=== PATIENT | female | born 1965 | race African-American/Black ===

== ENCOUNTER 2023-07-11 13:49 | Outpatient (AMB) | payer OTHER, SELFPAY ==
--- NOTE | 2023-07-11 14:11 | MHC.OFFVIS ---
Intake Vital Signs 07/11/23 14:12 Height 5 ft 4 in Weight 167 lb BMI 28.7 BP 118/68 Blood Pressure Location Rt brachial Position Sitting Pulse 74 Pulse Source Pulse Oximeter Pulse Oximetry (%) 97 Oxygen Delivery Method Room Air Intake Visit Reasons: Cough Aquatic Performer Required: No Market Development Director: Market Development Director offered & declined Accompanied by: Self / Same As Patient Allergies Latex Allergy (Severe, Uncoded 07/11/23 14:21) Hives Medication List - Last Reconciled 07/11/23 by Yissel Weldon LPN amlodipine 2.5 mg PO DAILY cetirizine 10 mg PO DAILY PRN fluticasone propionate 50 mcg/actuation 1 spray intranasal BID levothyroxine 100 mcg PO DAILY rosuvastatin 10 mg PO DAILY HPI Cough HPI Details Kerri is a pleasant 58 year old female, former smoker with 7 pack year history, quit 35 years ago with underlying HTN, environmental allergies and allergic rhinitis. She was referred for pulmonary evaluation for chronic dry cough. She reports cough started after COVID last year, and continues with intermittent wheezing and dyspnea with moderate exertion. She had a CXR recently which was unremarkable. She reports multiple family members with asthma, but denies any personal history of respiratory conditions. She notes weight gain of approximately 20 pounds over the last year. She reports multiple environmental allergies and post nasal drip, using zyrtec and flonase with good effect. She also is allergic to cats and has a cat. Of note, patient reports ongoing bilateral leg edema for the past few months which may be related to amlodipine. She has placed a call to her PCP to discuss. [facility] Social History (Updated 07/11/23 @ 14:27 by Yissel Weldon LPN) Patient Tobacco Use Status: Former Tobacco user Tobacco use type: Cigarette Cigarettes Per Day: 10 Years Smoked: 14 Smoked in Last 30 Days: No Review of Systems Const Denies chills, Denies excessive sweating, Denies fever(s), Denies headache(s) and Denies night sweats Eyes Denies dry eyes, Denies irritation and Denies itchy eyes ENT Reports Normal hearing present, Denies headache(s), Denies nasal discharge and Denies sore throat Card Denies chest pain, Denies chest pain at rest, Denies chest pain with activity, Denies claudication, Reports leg edema, Denies orthopnea and Denies paroxysmal nocturnal dyspnea Resp Denies chest congestion, Reports cough, Denies excessive phlegm production, Denies pain on inspiration, Denies pain with cough, Denies stridor and Reports wheezing Musc Denies myalgias Neuro Reports Normal hearing present and Denies headache(s) Endo Denies excessive sweating Henrry/Lymph Denies lymphadenopathy Aller/Immun Denies itchy eyes, Denies seasonal rhinorrhea and Reports wheezing Physical Exam Vital Signs: Last Vital Signs Pulse 74 07/11/23 14:12 BP 118/68 07/11/23 14:12 Pulse Ox 97 07/11/23 14:12 Oxygen Delivery Method Room Air 07/11/23 14:12 BMI result Body Mass Index 28.7 Const General: cooperative, healthy appearing, comfortable, no acute distress, well developed and alert Orientation/consciousness: patient oriented x3 Limitations: no limitations HEENT Head: Yes normal to inspection, Yes normocephalic and Yes atraumatic Ears: hearing grossly normal bilaterally and external ears normal Eyes General: appearance normal, both eyes and all related structures Eyelids: Yes eyelids normal Sclerae: sclerae normal EOM: EOMs intact bilaterally Neck Neck: Yes normal visual inspection and Yes no lymphadenopathy Lymphatic: no lymphadenopathy noted Chest Chest palpation & inspection: normal inspection of the chest Resp Effort & Inspection: normal respiratory effort, able to speak in complete sentences, no audible wheezes, no cough, no stridor, not tachypneic, no tripod positioning and no use of accessory muscles Auscultation: clear to auscultation bilaterally Cardio Jugular venous distension: no JVD Rate: regular rate Rhythm: regular rhythm Skin Other: warm, dry General skin exam: no rashes or lesions noted Neuro General: patient oriented x3 Cranial nerves: Yes Normal hearing present Cognition (Neuro): normal cognition Gait exam (Neuro): Normal gait present Extrem Other: 1-2+ pitting edema BLE General: Yes normal to inspection and Yes capillary refill normal Psych Appearance: grossly normal and well kempt Speech and movement: Normal speech and movement present and Clear speech present Affect: normal affect Attitude: cooperative Thought process: Normal thought process present Thought content: Normal thought content present Insight: Good insight present (Psych) Judgement: Good judgement present (Psych) Assessment & Plan Assessment & Plan (1) Chronic cough: Code(s): R05.3 - Chronic cough (2) Environmental allergies: Code(s): Z91.09 - Other allergy status, other than to drugs and biological substances (3) Allergic rhinitis: Code(s): J30.9 - Allergic rhinitis, unspecified Plan Kerri's symptoms are likely multifactorial with contribution from pulmonary and allergic components. Will send for PFT and RAST to evaluate. Since patient with persistent cough and unremarkable CXR, will send for chest CT. Patient reported good effect with flonase and requesting refill, will enter this and trial her on albuterol. All questions were answered and patient is in agreement of plan. Will follow up to review results and response to albuterol in 4-6 weeks or sooner if needed. Orders: Orders PFT pulmonary function test Today R05.3 - Chronic cough CT chest wo IV con Today R05.3 - Chronic cough Rast Allergen Today J30.9 - Allergic rhinitis, unspecified, Z91.09 - Other allergy status, other than to drugs and biological substances Complete Blood Count Auto Diff Today R05.3 - Chronic cough Medications: New albuterol sulfate 90 mcg/actuation 2 puffs inhalation Q4-6H PRN 8.5 grams 0RF shortness of breath or wheezing fluticasone propionate 50 mcg/actuation administer into each nostril 1 spray intranasal BID 16 grams 3RF Coding Level of Care Code New Pt Level 4 (13146) Diagnoses Chronic cough R05.3 Environmental allergies Z91.09 Allergic rhinitis J30.9
[2023-07-11 14:12] VITALS: BP 118/68; PULSE 74; O2SAT 97; BMI 28.7
== END 2023-07-11 14:56 | disposition home or self-care (01) ==
PROVIDERS: PCP Internal Medicine; Visit Provider Nurse Practitioner Family
DX: R05.3 Chronic cough (principal); Z91.09 Other allergy status, other than to drugs and biological substances; J30.9 Allergic rhinitis, unspecified
CPT/HCPCS: 99204

== ENCOUNTER → 2023-07-11 13:49 | Outpatient (BNVA) | payer OTHER, SELFPAY | PROVIDERS: PCP Internal Medicine; Visit Provider Nurse Practitioner Family ==

== ENCOUNTER 2023-08-23 07:05 | Outpatient (REF) | payer OTHER, SELFPAY ==
--- NOTE | ~2023-08-23 | CT_ITS ---
EXAMINATION: CT CHEST WITHOUT CONTRAST CLINICAL INFORMATION: Chronic cough. COMPARISON: Chest radiograph 03/29/2023. TECHNIQUE: Multidetector volumetric CT imaging of the chest was done. Axial MIP volume rendering provided. Sagittal and coronal reformatted images were obtained. This CT examination was performed using dose optimization techniques as appropriate, variously including the following: *Automated exposure control *Adjustment of mA and/or kV according to patient size (this includes techniques or standardized protocols for targeted exams where dose is matched to indication/reason for exam; i.e. extremities or head) *Use of iterative reconstruction technique DLP: 162 mGy-cm FINDINGS: PHOTO CHECKER AND ASSEMBLER: Normal. LUNGS: The lungs are essentially clear with no evidence of inflammation or worrisome nodules. A tiny 2 mm right lower lobe pulmonary nodule is seen (5:348). MEDIASTINUM: Thyroid is mildly prominent in size. No mediastinal or hilar lymphadenopathy. Heart size normal. CORONARY ARTERY CALCIFICATION: None visualized on this study. PLEURA: There is no pleural effusion. No pleural mass or thickening. AXILLA/chest wall: No lymphadenopathy. There is a small 4 mm lymph node seen in the right inferior axilla which had measured 6 mm (5:315 compare prior 5:7). UPPER ABDOMEN: There is a calcifications seen in the upper pole of the right kidney measuring 2 mm in size with a tiny focal scar present at this level. A worrisome finding is not seen. OSSEOUS STRUCTURES: Unremarkable. A bone island is present in T11. CT/CT chest wo IV con IMPRESSION: 1. A cause for the patient's chronic cough has not been found. 2. Incidental findings as described above. According to the UPDATED 2017 Fleischner Society recommendations, the advised follow-up imaging for solid nodules <6 mm in the middle/lower lobes is no routine followup.
[2023-08-23 07:49] LABS: MANUAL DIFF FLAG NO
[2023-08-23 08:37] LABS: Basophils Percent Auto 0.5 % (0-2); Eosinophils Absolute Auto 0.1 X10*3/uL (0.0-0.4); Imm Gran Abs Auto 0.02 X10*3/uL (0.00-0.03); Imm Gran Pct Auto 0.4 % (0.0-0.4); Lymphocytes Absolute Auto 1.3 X10*3/uL (1.2-4.9); Lymphocytes Percent Auto 23.1 % (20-40); Mean Corpuscular HGB Conc 33.3 g/dl (31.0-35.0); Mean Corpuscular Hemoglobin 28.9 pg (27.0-33.0); Mean Corpuscular Volume 86.7 fL (80.0-98.0); Mean Platelet Volume 10.3 fL (9.4-12.3); Monocytes Absolute Auto 0.4 X10*3/uL (0.1-1.2); Monocytes Percent Auto 6.5 % (2-11); Neutrophils Absolute Auto 3.7 x10*3/uL (2.0-8.3); Neutrophils Percent Auto 67.5 % (45-73); Platelet Count 299 X10*3/uL (160-400); Red Cell Distribution Width 14.5 % (11.0-16.0); White Blood Count 5.5 X10*3/uL (4.8-10.8)
[2023-08-30 09:33] LABS: Class Alternaria alternata 0; Class Aspergillus fumigatus 0; Class Bermuda Grass 1; Class Birch 0; Class Cat Dander 1; Class Cladosporium herbarum 0; Class Cockroach 0/1; Class Common Ragweed 0; Class Cottonwood 0; Class Derm. pterony 0; Class Dermatophagoides farinae 0; Class Dog Dander 0; Class Elm 0; Class Maple Box Elder 0; Class Mountain Cedar 0; Class Mouse Urine Protein 0; Class Mugwort 0; Class Oak 0; Class Penicillium crysogenum 0; Class Rough Pigweed 0; Class Sheep Sorrel 0; Class Sycamore 0; Class Timothy Grass 2; Class Walnut Tree 0; Class White Ash 0; Class White Mulberry 0; D001 IgE D pteronyssinus <0.10 kU/L; D002 - IgE D farinae <0.10 kU/L; E001 - IgE Cat Dander 0.52 kU/L; E005 - IgE Dog Dander <0.10 kU/L; E072-IgE Mouse Urine <0.10 kU/L; G002 IgE Bermuda Grass 0.63 kU/L; G006 - IgE Timothy Grass 1.72 kU/L; I006-IgE Cockroach, German 0.15 kU/L; Immunoglobulin E 32 kU/L (<OR=114); M001 IgE Penicillium chrysogen <0.10 kU/L; M002 - IgE Cladosporium herbar <0.10 kU/L; M003 - IgE Aspergillus fumigat <0.10 kU/L; M006 - IgE Alternaria alternat <0.10 kU/L; T001 IgE Maple/Box Elder <0.10 kU/L; T003 IgE Common Silver Birch <0.10 kU/L; T006 - IgE Cedar, Mountain <0.10 kU/L; T007 - IgE Oak, White <0.10 kU/L; T008 IgE Elm, American <0.10 kU/L; T010 - IgE Walnut <0.10 kU/L; T011 - IgE Maple Leaf Sycamore <0.10 kU/L; T014 - IgE Cottonwood <0.10 kU/L; T015 - IgE Ash, White <0.10 kU/L; T070 - IgE White Mulberry <0.10 kU/L; W001 - IgE Ragweed, Short <0.10 kU/L; W006 - IgE Mugwort <0.10 kU/L; W014 IgE Pigweed, Common <0.10 kU/L; W018 IgE Sheep Sorrel <0.10 kU/L
== END 2023-08-23 07:06 | disposition home or self-care (01) ==
LOC: HO.CT 07:05
PROVIDERS: PCP Internal Medicine; Visit Provider Nurse Practitioner Family
DX: R05.3 Chronic cough (principal); Z91.09 Other allergy status, other than to drugs and biological substances
CPT/HCPCS: 36415; 71250; 82785; 85025; 86003